=== PATIENT | male | born 1940 | race Caucasian/White ===

== ENCOUNTER 2017-01-15 10:30 | Emergency (ER) | payer OTHER, MEDICARE ==
[~2017-01-15] VITALS: Ht 172.7 cm; Wt 65.8 kg
[~2017-01-15 10:30] MED LIST: LOSA25TA3 PO; METF-305 PO; SIMV20TA6 PO; SITA100T7 PO
[2017-01-15 10:45] VITALS: BP_SYST 125
[2017-01-15 13:08] LABS: BASOPHILS # (AUTO) 0.2 K/uL (0.0-0.2); EOSINOPHILS # (AUTO) 0.2 K/uL (0.0-0.4); EOSINOPHILS % (AUTO) 1.9 % (0.0-4.0); HEMATOCRIT 40.4 % (36-54); HEMOGLOBIN 13.7 g/dL (14.0-18.0); LYMPHOCYTES # (AUTO) 0.9 K/uL (1.0-5.5); LYMPHOCYTES % (AUTO) 7.2 % (20.5-51.5); MEAN CORPUSCULAR HEMOGLOBIN 32 pg (27-31); MEAN CORPUSCULAR HGB CONC 34 % (32-36); MEAN CORPUSCULAR VOLUME 94 fL (79.0-98.0); MONOCYTES # (AUTO) 0.9 K/uL (0.0-1.0); MONOCYTES % (AUTO) 7.5 % (1.7-9.3); NEUTROPHILS # (AUTO) 9.7 K/uL (1.8-7.7); NEUTROPHILS % (AUTO) 81.4 % (40.0-70.0); PLATELET COUNT (AUTO) 133 K/uL (130-430); RED BLOOD CELL COUNT(AUTO) 4.31 MIL/uL (4.2-6.2); RED CELL DISTRIBUTION WIDTH 14.3 % (9.0-15.0); WHITE BLOOD COUNT (AUTO) 11.9 K/uL (4.8-10.8)
[2017-01-15 13:18] LABS: ANION GAP 7 (5-15); CALCIUM 8.7 mg/dL (8.4-11.0); CHLORIDE 107 mmol/L (98-107); CREATININE 0.82 mg/dL (0.55-1.30); GLUCOSE 138 mg/dL (70-99); SODIUM SERUM 140 mmol/L (136-145); UREA NITROGEN, BLOOD 25 mg/dL (8-21)
[2017-01-15 13:20] LABS: INR 1.2 (0.80-1.20); PROTHROMBIN TIME 12.8 SECS (9.5-12.5)
[2017-01-15 13:22] LABS: ALANINE AMINOTRANSFERASE 20 U/L (12-78); ALBUMIN 3.2 g/dL (3.4-4.8); ASPARTATE AMINOTRANSFERASE 13 U/L (10-37); TOTAL BILIRUBIN 0.9 mg/dL (0.0-1.0); TOTAL PROTEIN, SERUM 6.6 g/dL (6.4-8.3)
[2017-01-15 13:56] LABS: BILIRUBIN,URINE NEGATIVE (NEGATIVE); BLOOD, URINE NEGATIVE (NEGATIVE); CLARITY/URINE CLEAR (CLEAR); COLOR,URINE YELLOW (YELLOW); GLUCOSE,URINE NEGATIVE (NEGATIVE); KETONES,URINE NEGATIVE (NEGATIVE); LEUKOCYTE ESTERASE ,URINE NEGATIVE (NEGATIVE); NITRITE, URINE NEGATIVE (NEGATIVE); PROTEIN URINE TRACE (NEGATIVE); UROBILINOGEN,URINE 0.2 (0.2-1.0)
[2017-01-15 13:58] LABS: BACTERIA,URINE RARE /HPF (None Seen); MUCUS,URINE 1+ /LPF (None Seen); RBC,URINE 0-3 /HPF (0-3); WBC,URINE 0-3 /HPF (0-3)
[2017-01-15 14:30] VITALS: BP_SYST 121
== END 2017-01-15 14:30 | disposition home or self-care (01) ==
LOC: SED 10:30
DX: S20.211A Contusion of right front wall of thorax, initial encounter (principal); E11.9 Type 2 diabetes mellitus without complications; I10 Essential (primary) hypertension; C34.90 Malignant neoplasm of unspecified part of unspecified bronchus or lung; Z88.0 Allergy status to penicillin; W19.XXXA Unspecified fall, initial encounter; Y93.89 Activity, other specified; Y92.009 Unspecified place in unspecified non-institutional (private) residence as the place of occurrence of the external cause; Y99.8 Other external cause status
CPT/HCPCS: 36415; 71010; 71100; 80053; 81000-TC; 83880; 84484; 85025; 85610-TC; 93005; 99285

== ENCOUNTER 2017-08-29 10:39 | Inpatient (IN) | payer OTHER, MEDICARE ==
[2017-08-29] VITALS (11 sets, daily range): BP systolic 96–178
[~2017-08-29] VITALS: Ht 172.7 cm; Wt 61.7 kg
[2017-08-29 11:38] LABS: BASOPHILS # (AUTO) 0.1 K/uL (0.0-0.2); BASOPHILS % (AUTO) 1.7 % (0.0-2.0); EOSINOPHILS # (AUTO) 0.1 K/uL (0.0-0.4); HEMATOCRIT 41.1 % (36-54); HEMOGLOBIN 13.3 g/dL (14.0-18.0); LYMPHOCYTES # (AUTO) 0.5 K/uL (1.0-5.5); LYMPHOCYTES % (AUTO) 6.6 % (20.5-51.5); MEAN CORPUSCULAR HEMOGLOBIN 30 pg (27-31); MEAN CORPUSCULAR HGB CONC 32 % (32-36); MEAN CORPUSCULAR VOLUME 92 fL (79.0-98.0); MONOCYTES # (AUTO) 0.4 K/uL (0.0-1.0); MONOCYTES % (AUTO) 5.8 % (1.7-9.3); NEUTROPHILS # (AUTO) 6.6 K/uL (1.8-7.7); NEUTROPHILS % (AUTO) 84.9 % (40.0-70.0); PLATELET COUNT (AUTO) 139 K/uL (130-430); RED BLOOD CELL COUNT(AUTO) 4.48 MIL/uL (4.2-6.2); RED CELL DISTRIBUTION WIDTH 14.6 % (9.0-15.0); WHITE BLOOD COUNT (AUTO) 7.7 K/uL (4.8-10.8)
[2017-08-29 12:09] LABS: ANION GAP 10 (5-15); CALCIUM 8.7 mg/dL (8.4-11.0); CHLORIDE 100 mmol/L (98-107); CREATININE 0.72 mg/dL (0.55-1.30); GLUCOSE 151 mg/dL (70-99); POTASSIUM 4.8 mmol/L (3.5-5.1); SODIUM SERUM 135 mmol/L (136-145); UREA NITROGEN, BLOOD 28 mg/dL (8-21)
[2017-08-29 12:14] LABS: ALANINE AMINOTRANSFERASE 16 U/L (12-78); ALBUMIN 3.3 g/dL (3.4-4.8); ASPARTATE AMINOTRANSFERASE 18 U/L (10-37); TOTAL BILIRUBIN 0.8 mg/dL (0.0-1.0)
[2017-08-29] MEDS ORDERED: GLIP-195 PO (12:37)
[2017-08-29] MEDS ORDERED: TYC3 PO (12:37)
[2017-08-29] MEDS ORDERED: TAMS-11 PO (12:37)
[2017-08-29] MEDS ORDERED: CILO100T PO (12:37)
[2017-08-29 13:02] LABS: BILIRUBIN,URINE NEGATIVE (NEGATIVE); BLOOD, URINE NEGATIVE (NEGATIVE); CLARITY/URINE CLEAR (CLEAR); COLOR,URINE YELLOW (YELLOW); GLUCOSE,URINE NEGATIVE (NEGATIVE); KETONES,URINE 2+ (NEGATIVE); LEUKOCYTE ESTERASE ,URINE TRACE (NEGATIVE); NITRITE, URINE NEGATIVE (NEGATIVE); PH,URINE 5.5 (5.0-8.0); PROTEIN URINE NEGATIVE (NEGATIVE); UROBILINOGEN,URINE 0.2 (0.2-1.0)
[2017-08-29 13:15] LABS: INR 1.2 (0.80-1.20); PROTHROMBIN TIME 12.5 SECS (9.5-12.5)
[2017-08-29 13:49] LABS: BACTERIA,URINE FEW /HPF (None Seen); RBC,URINE 0-3 /HPF (0-3)
[2017-08-29] MEDS ORDERED: DILTIAZEM HCL 25 MG/5 ML VIAL ONE (13:49)
[2017-08-29 13:50] LABS: MUCUS,URINE 1+ /LPF (None Seen)
[2017-08-29] MEDS ORDERED: DILTIAZEM HCL 25 MG/5 ML VIAL IVP ONE ×3 (14:00→16:15)
[2017-08-29] MEDS ORDERED: DEXTROSE 50% JECT 50 ML DISP.SYRIN IVP PRN (15:15)
[2017-08-29] MEDS ORDERED: cefTRIAXone 1 GM in D5W 50 ML IV ONE (16:00)
[2017-08-29] MEDS: AZITHROMYCIN 250 MG TABLET PO ONE ×2 (16:48→16:59)
[2017-08-29] MEDS: DILTIAZEM HCL 125 MG in D5W 100 ML IV SCH (17:05)
[2017-08-29] MEDS: INSULIN ASPART 100 UNITS/ML, 10 ML VIAL (NovoLOG) SUBCUT PRN (21:29)
[2017-08-29] MEDS: glipiZIDE XL 5 MG TAB ( GLUCOTROL XL) PO SCH (21:30)
[2017-08-29] MEDS: metFORMIN HCL 500 MG TABLET PO SCH (21:30)
[2017-08-29] MEDS ORDERED: AMIODARONE HCL 200 MG TABLET PO ONE (23:00)
[2017-08-30] VITALS (24 sets, daily range): BP systolic 87–137
[2017-08-30] MEDS: DILTIAZEM HCL 125 MG in D5W 100 ML IV SCH ×2 (00:11→11:15)
[2017-08-30] MEDS: AMIODARONE HCL 200 MG TABLET PO SCH ×3 (06:14→21:04)
[2017-08-30 06:27] LABS: BASOPHILS % (AUTO) 0.7 % (0.0-2.0); EOSINOPHILS # (AUTO) 0.3 K/uL (0.0-0.4); EOSINOPHILS % (AUTO) 4.3 % (0.0-4.0); HEMATOCRIT 38.3 % (36-54); HEMOGLOBIN 12.7 g/dL (14.0-18.0); LYMPHOCYTES # (AUTO) 0.8 K/uL (1.0-5.5); LYMPHOCYTES % (AUTO) 13.4 % (20.5-51.5); MEAN CORPUSCULAR HEMOGLOBIN 31 pg (27-31); MEAN CORPUSCULAR HGB CONC 33 % (32-36); MEAN CORPUSCULAR VOLUME 93 fL (79.0-98.0); MONOCYTES # (AUTO) 0.5 K/uL (0.0-1.0); MONOCYTES % (AUTO) 8.2 % (1.7-9.3); NEUTROPHILS # (AUTO) 4.6 K/uL (1.8-7.7); NEUTROPHILS % (AUTO) 73.4 % (40.0-70.0); PLATELET COUNT (AUTO) 135 K/uL (130-430); RED BLOOD CELL COUNT(AUTO) 4.14 MIL/uL (4.2-6.2); RED CELL DISTRIBUTION WIDTH 14.7 % (9.0-15.0); WHITE BLOOD COUNT (AUTO) 6.2 K/uL (4.8-10.8)
[2017-08-30 06:47] LABS: ANION GAP 7 (5-15); CALCIUM 8.6 mg/dL (8.4-11.0); CHLORIDE 103 mmol/L (98-107); CREATININE 0.54 mg/dL (0.55-1.30); GLUCOSE 97 mg/dL (70-99); POTASSIUM 4.4 mmol/L (3.5-5.1); SODIUM SERUM 138 mmol/L (136-145); UREA NITROGEN, BLOOD 20 mg/dL (8-21)
[2017-08-30] MEDS: cefTRIAXone 1 GM in D5W 50 ML IV SCH (08:46)
[2017-08-30] MEDS: AZITHROMYCIN 250 MG TABLET PO SCH (08:47)
[2017-08-30] MEDS: metFORMIN HCL 500 MG TABLET PO SCH ×2 (08:47→21:04)
[2017-08-30] MEDS: TAMSULOSIN HCL 0.4 MG CAP PO SCH (08:48)
[2017-08-30] MEDS: SIMVASTATIN 20 MG TABLET PO SCH (08:48)
[2017-08-30] MEDS: glipiZIDE XL 5 MG TAB ( GLUCOTROL XL) PO SCH ×2 (08:49→21:14)
[2017-08-30] MEDS ORDERED: LOSARTAN POTASSIUM 25 MG TABLET PO SCH (09:00)
[2017-08-30] MEDS: METOPROLOL TARTRATE 25 MG TABLET PO SCH (21:00)
[2017-08-30] MEDS: INSULIN ASPART 100 UNITS/ML, 10 ML VIAL (NovoLOG) SUBCUT PRN (21:10)
[2017-08-31] VITALS (20 sets, daily range): BP systolic 87–124
[2017-08-31] MEDS: AMIODARONE HCL 200 MG TABLET PO SCH ×3 (06:20→23:48)
[2017-08-31 06:41] LABS: BASOPHILS # (AUTO) 0.1 K/uL (0.0-0.2); BASOPHILS % (AUTO) 0.7 % (0.0-2.0); EOSINOPHILS # (AUTO) 0.2 K/uL (0.0-0.4); EOSINOPHILS % (AUTO) 1.8 % (0.0-4.0); HEMATOCRIT 38.8 % (36-54); HEMOGLOBIN 12.3 g/dL (14.0-18.0); LYMPHOCYTES # (AUTO) 0.6 K/uL (1.0-5.5); LYMPHOCYTES % (AUTO) 6.6 % (20.5-51.5); MEAN CORPUSCULAR HEMOGLOBIN 29 pg (27-31); MEAN CORPUSCULAR HGB CONC 32 % (32-36); MEAN CORPUSCULAR VOLUME 92 fL (79.0-98.0); MONOCYTES # (AUTO) 0.7 K/uL (0.0-1.0); MONOCYTES % (AUTO) 8.5 % (1.7-9.3); NEUTROPHILS % (AUTO) 82.4 % (40.0-70.0); PLATELET COUNT (AUTO) 137 K/uL (130-430); RED BLOOD CELL COUNT(AUTO) 4.23 MIL/uL (4.2-6.2); RED CELL DISTRIBUTION WIDTH 14.1 % (9.0-15.0); WHITE BLOOD COUNT (AUTO) 8.6 K/uL (4.8-10.8)
[2017-08-31 06:56] LABS: ANION GAP 9 (5-15); CALCIUM 8.6 mg/dL (8.4-11.0); CHLORIDE 100 mmol/L (98-107); CREATININE 0.58 mg/dL (0.55-1.30); GLUCOSE 136 mg/dL (70-99); POTASSIUM 3.7 mmol/L (3.5-5.1); SODIUM SERUM 134 mmol/L (136-145)
[2017-08-31 07:25] LABS: UREA NITROGEN, BLOOD 23 mg/dL (8-21)
[2017-08-31] MEDS ORDERED: MILK OF MAGNESIA 30 ML UDC PO ONE (08:45)
[2017-08-31] MEDS ORDERED: BISACODYL 5 MG TABLET.DR (DULCOLAX) PO ONE (08:45)
[2017-08-31] MEDS: TAMSULOSIN HCL 0.4 MG CAP PO SCH (09:09)
[2017-08-31] MEDS: cefTRIAXone 1 GM in D5W 50 ML IV SCH (09:09)
[2017-08-31] MEDS: glipiZIDE XL 5 MG TAB ( GLUCOTROL XL) PO SCH ×2 (09:10→20:26)
[2017-08-31] MEDS: SIMVASTATIN 20 MG TABLET PO SCH (09:10)
[2017-08-31] MEDS: AZITHROMYCIN 250 MG TABLET PO SCH (09:10)
[2017-08-31] MEDS: METOPROLOL TARTRATE 25 MG TABLET PO SCH ×2 (09:10→20:24)
[2017-08-31] MEDS: metFORMIN HCL 500 MG TABLET PO SCH ×2 (09:29→20:24)
[2017-08-31] MEDS: DOCUSATE SODIUM 250 MG CAPSULE PO SCH ×2 (09:32→20:24)
[2017-08-31] MEDS ORDERED: LATA2.5D6 OP (11:08)
[2017-08-31] MEDS ORDERED: ALPHAGANP OP (11:08)
[2017-08-31] MEDS: INSULIN ASPART 100 UNITS/ML, 10 ML VIAL (NovoLOG) SUBCUT PRN ×2 (11:53→20:33)
[2017-08-31] MEDS ORDERED: NACL 0.9% 1,000 ML IV SCH (17:00)
[2017-09-01] VITALS (7 sets, daily range): BP systolic 94–146
[2017-09-01 07:14] LABS: BASOPHILS # (AUTO) 0.1 K/uL (0.0-0.2); BASOPHILS % (AUTO) 0.5 % (0.0-2.0); EOSINOPHILS # (AUTO) 0.1 K/uL (0.0-0.4); EOSINOPHILS % (AUTO) 0.5 % (0.0-4.0); HEMATOCRIT 40.9 % (36-54); HEMOGLOBIN 13.5 g/dL (14.0-18.0); LYMPHOCYTES # (AUTO) 0.4 K/uL (1.0-5.5); LYMPHOCYTES % (AUTO) 4.2 % (20.5-51.5); MEAN CORPUSCULAR HEMOGLOBIN 30 pg (27-31); MEAN CORPUSCULAR HGB CONC 33 % (32-36); MEAN CORPUSCULAR VOLUME 92 fL (79.0-98.0); MONOCYTES # (AUTO) 0.8 K/uL (0.0-1.0); MONOCYTES % (AUTO) 7.8 % (1.7-9.3); NEUTROPHILS # (AUTO) 8.7 K/uL (1.8-7.7); PLATELET COUNT (AUTO) 145 K/uL (130-430); RED BLOOD CELL COUNT(AUTO) 4.46 MIL/uL (4.2-6.2); RED CELL DISTRIBUTION WIDTH 14.3 % (9.0-15.0); WHITE BLOOD COUNT (AUTO) 10.1 K/uL (4.8-10.8)
[2017-09-01] MEDS: AMIODARONE HCL 200 MG TABLET PO SCH ×3 (07:29→22:36)
[2017-09-01 07:32] LABS: ANION GAP 10 (5-15); CALCIUM 7.8 mg/dL (8.4-11.0); CHLORIDE 102 mmol/L (98-107); GLUCOSE 128 mg/dL (70-99); POTASSIUM 3.9 mmol/L (3.5-5.1); SODIUM SERUM 137 mmol/L (136-145); UREA NITROGEN, BLOOD 22 mg/dL (8-21)
[2017-09-01] MEDS: SIMVASTATIN 20 MG TABLET PO SCH (09:45)
[2017-09-01] MEDS: AZITHROMYCIN 250 MG TABLET PO SCH (09:45)
[2017-09-01] MEDS: TAMSULOSIN HCL 0.4 MG CAP PO SCH (09:45)
[2017-09-01] MEDS: DOCUSATE SODIUM 250 MG CAPSULE PO SCH ×2 (09:45→20:58)
[2017-09-01] MEDS: glipiZIDE XL 5 MG TAB ( GLUCOTROL XL) PO SCH ×2 (09:45→20:58)
[2017-09-01] MEDS: metFORMIN HCL 500 MG TABLET PO SCH ×2 (09:46→20:58)
[2017-09-01] MEDS: METOPROLOL TARTRATE 25 MG TABLET PO SCH ×2 (09:47→20:59)
[2017-09-01] MEDS: ACETAMINOPHEN/CODEINE 300 MG-30 MG TABLET PO PRN (09:48)
[2017-09-01] MEDS: cefTRIAXone 1 GM in D5W 50 ML IV SCH (09:49)
[2017-09-01] MEDS ORDERED: FUROSEMIDE 40 MG/4 ML VIAL IVP ONE (10:45)
[2017-09-01] MEDS: INSULIN ASPART 100 UNITS/ML, 10 ML VIAL (NovoLOG) SUBCUT PRN (11:48)
[2017-09-01] MEDS: BRIMONIDINE TARTRATE 0.2% 5 mL EYE DROPS OP SCH (18:18)
[2017-09-01] MEDS: LATANOPROST 2.5 ML DROPS (XALATAN) OP SCH (18:19)
[2017-09-01] MEDS: IPRATROPIUM BROM 0.5 MG/2.5 ML VIAL.NEB (ATROVENT) INH SCH (20:34)
[2017-09-02] MEDS: IPRATROPIUM BROM 0.5 MG/2.5 ML VIAL.NEB (ATROVENT) INH SCH ×4 (02:15→19:50)
[2017-09-02] MEDS: AMIODARONE HCL 200 MG TABLET PO SCH ×3 (06:00→21:18)
[2017-09-02 07:44] LABS: BASOPHILS % (AUTO) 0.2 % (0.0-2.0); EOSINOPHILS % (AUTO) 0.1 % (0.0-4.0); HEMATOCRIT 39.1 % (36-54); HEMOGLOBIN 13.1 g/dL (14.0-18.0); LYMPHOCYTES # (AUTO) 0.6 K/uL (1.0-5.5); LYMPHOCYTES % (AUTO) 5.1 % (20.5-51.5); MEAN CORPUSCULAR HEMOGLOBIN 31 pg (27-31); MEAN CORPUSCULAR HGB CONC 33 % (32-36); MEAN CORPUSCULAR VOLUME 92 fL (79.0-98.0); MONOCYTES # (AUTO) 0.8 K/uL (0.0-1.0); MONOCYTES % (AUTO) 7.2 % (1.7-9.3); NEUTROPHILS # (AUTO) 9.4 K/uL (1.8-7.7); NEUTROPHILS % (AUTO) 87.4 % (40.0-70.0); PLATELET COUNT (AUTO) 133 K/uL (130-430); RED BLOOD CELL COUNT(AUTO) 4.26 MIL/uL (4.2-6.2); RED CELL DISTRIBUTION WIDTH 14.3 % (9.0-15.0); WHITE BLOOD COUNT (AUTO) 10.8 K/uL (4.8-10.8)
[2017-09-02 07:50] VITALS: BP_SYST 116
[2017-09-02 07:57] LABS: ANION GAP 11 (5-15); CALCIUM 7.9 mg/dL (8.4-11.0); CHLORIDE 104 mmol/L (98-107); CREATININE 0.57 mg/dL (0.55-1.30); GLUCOSE 83 mg/dL (70-99); POTASSIUM 3.4 mmol/L (3.5-5.1); SODIUM SERUM 139 mmol/L (136-145); UREA NITROGEN, BLOOD 20 mg/dL (8-21)
[2017-09-02] MEDS: AZITHROMYCIN 250 MG TABLET PO SCH (08:46)
[2017-09-02] MEDS: LATANOPROST 2.5 ML DROPS (XALATAN) OP SCH (08:46)
[2017-09-02] MEDS: metFORMIN HCL 500 MG TABLET PO SCH ×2 (08:47→21:16)
[2017-09-02] MEDS: DOCUSATE SODIUM 250 MG CAPSULE PO SCH ×2 (08:47→21:23)
[2017-09-02] MEDS: BRIMONIDINE TARTRATE 0.2% 5 mL EYE DROPS OP SCH (08:47)
[2017-09-02] MEDS: TAMSULOSIN HCL 0.4 MG CAP PO SCH (08:48)
[2017-09-02] MEDS: glipiZIDE XL 5 MG TAB ( GLUCOTROL XL) PO SCH ×2 (08:48→21:20)
[2017-09-02] MEDS: METOPROLOL TARTRATE 25 MG TABLET PO SCH ×2 (08:49→21:19)
[2017-09-02] MEDS: SIMVASTATIN 20 MG TABLET PO SCH (08:49)
[2017-09-02] MEDS: cefTRIAXone 1 GM in D5W 50 ML IV SCH (09:15)
[2017-09-02 12:35] VITALS: BP_SYST 128
[2017-09-02 16:00] VITALS: BP_SYST 119
[2017-09-02 20:00] VITALS: BP_SYST 112
[2017-09-03] MEDS: IPRATROPIUM BROM 0.5 MG/2.5 ML VIAL.NEB (ATROVENT) INH SCH ×4 (00:40→19:53)
[2017-09-03 00:48] VITALS: BP_SYST 130
[2017-09-03 04:10] VITALS: BP_SYST 127
[2017-09-03] MEDS: AMIODARONE HCL 200 MG TABLET PO SCH ×3 (06:19→20:40)
[2017-09-03 06:55] LABS: MEAN CORPUSCULAR HEMOGLOBIN 31 pg (27-31)
[2017-09-03 07:16] LABS: ANION GAP 11 (5-15); CALCIUM 8.1 mg/dL (8.4-11.0); CHLORIDE 100 mmol/L (98-107); CREATININE 0.56 mg/dL (0.55-1.30); GLUCOSE 72 mg/dL (70-99); POTASSIUM 3.9 mmol/L (3.5-5.1); SODIUM SERUM 136 mmol/L (136-145); UREA NITROGEN, BLOOD 24 mg/dL (8-21)
[2017-09-03 07:51] LABS: WHITE BLOOD COUNT (AUTO) 11.9 K/uL (4.8-10.8)
[2017-09-03 07:52] LABS: HEMATOCRIT 39.7 % (36-54); HEMOGLOBIN 13.1 g/dL (14.0-18.0); MEAN CORPUSCULAR HGB CONC 33 % (32-36); MEAN CORPUSCULAR VOLUME 92 fL (79.0-98.0); PLATELET COUNT (AUTO) 140 K/uL (130-430); RED BLOOD CELL COUNT(AUTO) 4.31 MIL/uL (4.2-6.2); RED CELL DISTRIBUTION WIDTH 14.7 % (9.0-15.0)
[2017-09-03 08:34] VITALS: BP_SYST 150
[2017-09-03] MEDS: DOCUSATE SODIUM 250 MG CAPSULE PO SCH ×2 (08:45→20:41)
[2017-09-03] MEDS: SIMVASTATIN 20 MG TABLET PO SCH (08:45)
[2017-09-03] MEDS: TAMSULOSIN HCL 0.4 MG CAP PO SCH (08:45)
[2017-09-03] MEDS: cefTRIAXone 1 GM in D5W 50 ML IV SCH (08:45)
[2017-09-03] MEDS: metFORMIN HCL 500 MG TABLET PO SCH ×2 (08:45→20:40)
[2017-09-03] MEDS: glipiZIDE XL 5 MG TAB ( GLUCOTROL XL) PO SCH ×2 (08:45→20:46)
[2017-09-03] MEDS: LATANOPROST 2.5 ML DROPS (XALATAN) OP SCH (08:45)
[2017-09-03] MEDS: BRIMONIDINE TARTRATE 0.2% 5 mL EYE DROPS OP SCH (08:45)
[2017-09-03] MEDS: METOPROLOL TARTRATE 25 MG TABLET PO SCH ×2 (08:46→20:40)
[2017-09-03] MEDS ORDERED: FUROSEMIDE 40 MG/4 ML VIAL IVP ONE (10:45)
[2017-09-03 11:16] LABS: ATYPICAL LYMPHOCYTES % 0 % (0-0); BAND % (MANUAL) 4 % (0-6); LYMPHOCYTES % (MANUAL) 4 % (20-46)
[2017-09-03 11:17] LABS: BASOPHILS % (MANUAL) 0 % (0-2); EOSINOPHILS % (MANUAL) 1 % (0-7); MONOCYTES % (MANUAL) 7 % (0-11)
[2017-09-03] MEDS ORDERED: methylPREDNISolone SOD SUCC 40 MG/ML VIAL IVP ONE (11:45)
[2017-09-03 12:00] VITALS: BP_SYST 118
[2017-09-03 16:00] VITALS: BP_SYST 121
[2017-09-03] MEDS: methylPREDNISolone SOD SUCC 40 MG/ML VIAL IVP SCH (20:39)
[2017-09-04] VITALS (7 sets, daily range): BP systolic 114–138
[2017-09-04] MEDS: IPRATROPIUM BROM 0.5 MG/2.5 ML VIAL.NEB (ATROVENT) INH SCH ×4 (01:22→19:31)
[2017-09-04] MEDS: AMIODARONE HCL 200 MG TABLET PO SCH ×3 (05:20→22:01)
[2017-09-04 06:48] LABS: ANION GAP 10 (5-15); CALCIUM 8.1 mg/dL (8.4-11.0); CHLORIDE 103 mmol/L (98-107); CREATININE 0.65 mg/dL (0.55-1.30); GLUCOSE 113 mg/dL (70-99); POTASSIUM 4.1 mmol/L (3.5-5.1); SODIUM SERUM 137 mmol/L (136-145); UREA NITROGEN, BLOOD 31 mg/dL (8-21)
[2017-09-04] MEDS: methylPREDNISolone SOD SUCC 40 MG/ML VIAL IVP SCH (08:30)
[2017-09-04] MEDS: LATANOPROST 2.5 ML DROPS (XALATAN) OP SCH (08:30)
[2017-09-04] MEDS: BRIMONIDINE TARTRATE 0.2% 5 mL EYE DROPS OP SCH (08:30)
[2017-09-04] MEDS: CEFEPIME 1 GM in D5W 50 ML IV SCH (08:30)
[2017-09-04] MEDS: METOPROLOL TARTRATE 25 MG TABLET PO SCH ×2 (08:31→21:39)
[2017-09-04] MEDS: metFORMIN HCL 500 MG TABLET PO SCH ×2 (08:31→21:36)
[2017-09-04] MEDS: DOCUSATE SODIUM 250 MG CAPSULE PO SCH ×2 (08:31→21:37)
[2017-09-04] MEDS: SIMVASTATIN 20 MG TABLET PO SCH (08:31)
[2017-09-04] MEDS: TAMSULOSIN HCL 0.4 MG CAP PO SCH (08:31)
[2017-09-04] MEDS: glipiZIDE XL 5 MG TAB ( GLUCOTROL XL) PO SCH ×2 (08:31→21:37)
[2017-09-04] MEDS ORDERED: FUROSEMIDE 40 MG/4 ML VIAL IVP ONE (09:15)
[2017-09-04] MEDS: methylPREDNISolone SOD SUCC/PF 62.5 MG/ML VIAL IVP SCH ×2 (14:11→21:40)
[2017-09-04] MEDS: INSULIN ASPART 100 UNITS/ML, 10 ML VIAL (NovoLOG) SUBCUT PRN (21:49)
[2017-09-05] VITALS (18 sets, daily range): BP systolic 93–142
[2017-09-05] MEDS: IPRATROPIUM BROM 0.5 MG/2.5 ML VIAL.NEB (ATROVENT) INH SCH ×4 (00:26→19:58)
[2017-09-05] MEDS: AMIODARONE HCL 200 MG TABLET PO SCH ×2 (06:15→13:44)
[2017-09-05] MEDS: methylPREDNISolone SOD SUCC/PF 62.5 MG/ML VIAL IVP SCH ×3 (06:16→21:46)
[2017-09-05 06:53] LABS: ANION GAP 12 (5-15); CALCIUM 8.7 mg/dL (8.4-11.0); CHLORIDE 100 mmol/L (98-107); CREATININE 0.74 mg/dL (0.55-1.30); GLUCOSE 95 mg/dL (70-99); POTASSIUM 4.3 mmol/L (3.5-5.1); SODIUM SERUM 138 mmol/L (136-145); UREA NITROGEN, BLOOD 37 mg/dL (8-21)
[2017-09-05] MEDS ORDERED: FUROSEMIDE 40 MG/4 ML VIAL IVP ONE (08:30)
[2017-09-05] MEDS ORDERED: FUROSEMIDE 20 MG/2 ML VIAL ONE (08:31)
[2017-09-05] MEDS: TAMSULOSIN HCL 0.4 MG CAP PO SCH (08:42)
[2017-09-05] MEDS: metFORMIN HCL 500 MG TABLET PO SCH (08:42)
[2017-09-05] MEDS: DOCUSATE SODIUM 250 MG CAPSULE PO SCH ×2 (08:42→21:39)
[2017-09-05] MEDS: SIMVASTATIN 20 MG TABLET PO SCH (08:42)
[2017-09-05] MEDS: CEFEPIME 1 GM in D5W 50 ML IV SCH (08:43)
[2017-09-05] MEDS: METOPROLOL TARTRATE 25 MG TABLET PO SCH ×2 (08:43→21:40)
[2017-09-05] MEDS: LATANOPROST 2.5 ML DROPS (XALATAN) OP SCH (08:49)
[2017-09-05] MEDS: BRIMONIDINE TARTRATE 0.2% 5 mL EYE DROPS OP SCH (08:51)
[2017-09-05] MEDS: glipiZIDE XL 5 MG TAB ( GLUCOTROL XL) PO SCH ×2 (09:00→21:47)
[2017-09-05] MEDS ORDERED: LEVOFLOXACIN 500 MG/D5W 100 ML IV SCH (10:00)
[2017-09-05] MEDS ORDERED: IOHEXOL 350 mgI/mL, 150 ML INFUS..BTL IV ONE (16:32)
[2017-09-05] MEDS ORDERED: AMIODARONE HCL 200 MG TABLET ONE (21:34)
[2017-09-05] MEDS: AZITHROMYCIN 500 MG in NS 250 ML IV SCH (21:39)
[2017-09-05] MEDS: ANTIFUNGAL CLEAR OINTMENT TP SCH (21:48)
[2017-09-06] VITALS (24 sets, daily range): BP systolic 107–160
[2017-09-06] MEDS: INSULIN ASPART 100 UNITS/ML, 10 ML VIAL (NovoLOG) SUBCUT PRN ×4 (00:22→21:54)
[2017-09-06] MEDS: ACETAMINOPHEN/CODEINE 300 MG-30 MG TABLET PO PRN (00:38)
[2017-09-06] MEDS: IPRATROPIUM BROM 0.5 MG/2.5 ML VIAL.NEB (ATROVENT) INH SCH ×4 (01:51→20:02)
[2017-09-06] MEDS: methylPREDNISolone SOD SUCC/PF 62.5 MG/ML VIAL IVP SCH ×3 (06:25→21:37)
[2017-09-06 06:27] LABS: HEMATOCRIT 35.9 % (36-54); HEMOGLOBIN 11.9 g/dL (14.0-18.0); LYMPHOCYTES # (AUTO) 0.2 K/uL (1.0-5.5); LYMPHOCYTES % (AUTO) 1.3 % (20.5-51.5); MEAN CORPUSCULAR HEMOGLOBIN 31 pg (27-31); MEAN CORPUSCULAR HGB CONC 33 % (32-36); MEAN CORPUSCULAR VOLUME 92 fL (79.0-98.0); MONOCYTES # (AUTO) 0.3 K/uL (0.0-1.0); MONOCYTES % (AUTO) 2.3 % (1.7-9.3); NEUTROPHILS # (AUTO) 14.5 K/uL (1.8-7.7); NEUTROPHILS % (AUTO) 96.4 % (40.0-70.0); PLATELET COUNT (AUTO) 106 K/uL (130-430); RED BLOOD CELL COUNT(AUTO) 3.89 MIL/uL (4.2-6.2); RED CELL DISTRIBUTION WIDTH 14.7 % (9.0-15.0)
[2017-09-06 06:57] LABS: ALANINE AMINOTRANSFERASE 61 U/L (12-78); ALBUMIN 2.3 g/dL (3.4-4.8); ANION GAP 7 (5-15); ASPARTATE AMINOTRANSFERASE 78 U/L (10-37); CALCIUM 7.5 mg/dL (8.4-11.0); CHLORIDE 100 mmol/L (98-107); CREATININE 0.62 mg/dL (0.55-1.30); GLUCOSE 155 mg/dL (70-99); SODIUM SERUM 135 mmol/L (136-145); UREA NITROGEN, BLOOD 41 mg/dL (8-21)
[2017-09-06] MEDS ORDERED: COMMUNICATION ORDER XX SCH ×5 (09:00→11:00)
[2017-09-06] MEDS: TAMSULOSIN HCL 0.4 MG CAP PO SCH (09:09)
[2017-09-06] MEDS: METOPROLOL TARTRATE 25 MG TABLET PO SCH ×2 (09:11→21:38)
[2017-09-06] MEDS: SIMVASTATIN 20 MG TABLET PO SCH (09:11)
[2017-09-06] MEDS: AMIODARONE HCL 200 MG TABLET PO SCH (09:12)
[2017-09-06] MEDS: BRIMONIDINE TARTRATE 0.2% 5 mL EYE DROPS OP SCH (09:15)
[2017-09-06] MEDS: glipiZIDE XL 5 MG TAB ( GLUCOTROL XL) PO SCH ×2 (09:16→21:38)
[2017-09-06] MEDS: LATANOPROST 2.5 ML DROPS (XALATAN) OP SCH (09:16)
[2017-09-06] MEDS: DOCUSATE SODIUM 250 MG CAPSULE PO SCH ×2 (09:16→21:38)
[2017-09-06] MEDS: CEFEPIME 1 GM in D5W 50 ML IV SCH (12:45)
[2017-09-06] MEDS ORDERED: DOCUSATE SODIUM 100 MG/10 ML UDC ONE (13:15)
[2017-09-06] MEDS: ANTIFUNGAL CLEAR OINTMENT TP SCH ×2 (18:03→22:10)
[2017-09-06] MEDS: LACTULOSE 20 GM/30 ML UDC PO SCH (21:37)
[2017-09-06] MEDS ORDERED: AZITHROMYCIN 500 MG/VIAL (ZITHROMAX) IV ONE (21:39)
[2017-09-06] MEDS: AZITHROMYCIN 500 MG in NS 250 ML IV SCH (22:08)
[2017-09-07] VITALS (25 sets, daily range): BP systolic 110–167
[2017-09-07] MEDS: IPRATROPIUM BROM 0.5 MG/2.5 ML VIAL.NEB (ATROVENT) INH SCH ×4 (01:45→19:25)
[2017-09-07] MEDS: ACETAMINOPHEN/CODEINE 300 MG-30 MG TABLET PO PRN ×2 (04:14→23:09)
[2017-09-07] MEDS: methylPREDNISolone SOD SUCC/PF 62.5 MG/ML VIAL IVP SCH (06:24)
[2017-09-07] MEDS: INSULIN ASPART 100 UNITS/ML, 10 ML VIAL (NovoLOG) SUBCUT PRN ×4 (06:28→21:06)
[2017-09-07 06:33] LABS: BASOPHILS % (AUTO) 0.1 % (0.0-2.0); HEMATOCRIT 37.1 % (36-54); HEMOGLOBIN 11.9 g/dL (14.0-18.0); LYMPHOCYTES # (AUTO) 0.2 K/uL (1.0-5.5); MEAN CORPUSCULAR HEMOGLOBIN 30 pg (27-31); MEAN CORPUSCULAR HGB CONC 32 % (32-36); MEAN CORPUSCULAR VOLUME 92 fL (79.0-98.0); MONOCYTES # (AUTO) 0.3 K/uL (0.0-1.0); MONOCYTES % (AUTO) 1.8 % (1.7-9.3); NEUTROPHILS # (AUTO) 15.4 K/uL (1.8-7.7); RED BLOOD CELL COUNT(AUTO) 4.05 MIL/uL (4.2-6.2); RED CELL DISTRIBUTION WIDTH 14.4 % (9.0-15.0); WHITE BLOOD COUNT (AUTO) 15.9 K/uL (4.8-10.8)
[2017-09-07 06:37] LABS: ANION GAP 4 (5-15); CALCIUM 7.5 mg/dL (8.4-11.0); CHLORIDE 103 mmol/L (98-107); CREATININE 0.49 mg/dL (0.55-1.30); GLUCOSE 114 mg/dL (70-99); PHOSPHORUS 3.3 mg/dL (2.7-4.5); POTASSIUM 3.7 mmol/L (3.5-5.1); SODIUM SERUM 134 mmol/L (136-145); UREA NITROGEN, BLOOD 30 mg/dL (8-21)
[2017-09-07 07:53] LABS: PLATELET COUNT (AUTO) 67 K/uL (130-430)
[2017-09-07 07:54] LABS: NEUTROPHILS % (AUTO) 97.1 % (40.0-70.0)
[2017-09-07] MEDS: CEFEPIME 1 GM in D5W 50 ML IV SCH (09:26)
[2017-09-07] MEDS: BRIMONIDINE TARTRATE 0.2% 5 mL EYE DROPS OP SCH (09:27)
[2017-09-07] MEDS: LATANOPROST 2.5 ML DROPS (XALATAN) OP SCH (09:28)
[2017-09-07] MEDS: LACTULOSE 20 GM/30 ML UDC PO SCH ×2 (09:28→20:56)
[2017-09-07] MEDS: DOCUSATE SODIUM 250 MG CAPSULE PO SCH ×2 (09:29→20:56)
[2017-09-07] MEDS: METOPROLOL TARTRATE 25 MG TABLET PO SCH ×2 (09:29→21:02)
[2017-09-07] MEDS: TAMSULOSIN HCL 0.4 MG CAP PO SCH (09:29)
[2017-09-07] MEDS: SIMVASTATIN 20 MG TABLET PO SCH (09:29)
[2017-09-07] MEDS: AMIODARONE HCL 200 MG TABLET PO SCH (09:29)
[2017-09-07] MEDS: glipiZIDE XL 5 MG TAB ( GLUCOTROL XL) PO SCH ×2 (09:30→21:03)
[2017-09-07] MEDS: ANTIFUNGAL CLEAR OINTMENT TP SCH ×2 (09:35→21:02)
[2017-09-07] MEDS: FUROSEMIDE 100 MG in D5W 90 ML IV SCH (11:52)
[2017-09-07] MEDS: POTASSIUM CHLORIDE 20 MEQ/PKT PACKET PO SCH (20:57)
[2017-09-07] MEDS ORDERED: methylPREDNISolone SOD SUCC/PF 62.5 MG/ML VIAL IVP SCH (21:00)
[2017-09-08] VITALS (23 sets, daily range): BP systolic 92–156
[2017-09-08] MEDS: IPRATROPIUM BROM 0.5 MG/2.5 ML VIAL.NEB (ATROVENT) INH SCH ×4 (00:18→19:18)
[2017-09-08 06:37] LABS: HEMOGLOBIN 13.1 g/dL (14.0-18.0); LYMPHOCYTES # (AUTO) 0.2 K/uL (1.0-5.5); MEAN CORPUSCULAR HEMOGLOBIN 30 pg (27-31); MEAN CORPUSCULAR HGB CONC 34 % (32-36); MEAN CORPUSCULAR VOLUME 90 fL (79.0-98.0); MONOCYTES # (AUTO) 0.1 K/uL (0.0-1.0); MONOCYTES % (AUTO) 0.5 % (1.7-9.3); NEUTROPHILS # (AUTO) 20.9 K/uL (1.8-7.7); PLATELET COUNT (AUTO) 66 K/uL (130-430); RED BLOOD CELL COUNT(AUTO) 4.31 MIL/uL (4.2-6.2); RED CELL DISTRIBUTION WIDTH 14.4 % (9.0-15.0); WHITE BLOOD COUNT (AUTO) 21.2 K/uL (4.8-10.8)
[2017-09-08 06:40] LABS: ANION GAP 1 (5-15); CALCIUM 7.1 mg/dL (8.4-11.0); CHLORIDE 105 mmol/L (98-107); GLUCOSE 126 mg/dL (70-99); PHOSPHORUS 2.7 mg/dL (2.7-4.5); POTASSIUM 3.9 mmol/L (3.5-5.1); SODIUM SERUM 133 mmol/L (136-145); UREA NITROGEN, BLOOD 26 mg/dL (8-21)
[2017-09-08 07:53] LABS: NEUTROPHILS % (AUTO) 98.5 % (40.0-70.0)
[2017-09-08] MEDS: CEFEPIME 1 GM in D5W 50 ML IV SCH (09:25)
[2017-09-08] MEDS: LACTULOSE 20 GM/30 ML UDC PO SCH ×2 (09:25→20:28)
[2017-09-08] MEDS: POTASSIUM CHLORIDE 20 MEQ/PKT PACKET PO SCH ×2 (09:25→20:28)
[2017-09-08] MEDS: METOPROLOL TARTRATE 25 MG TABLET PO SCH ×2 (09:29→20:30)
[2017-09-08] MEDS: SIMVASTATIN 20 MG TABLET PO SCH (09:29)
[2017-09-08] MEDS: DOCUSATE SODIUM 250 MG CAPSULE PO SCH ×2 (09:29→20:29)
[2017-09-08] MEDS: AMIODARONE HCL 200 MG TABLET PO SCH (09:30)
[2017-09-08] MEDS: glipiZIDE XL 5 MG TAB ( GLUCOTROL XL) PO SCH ×2 (09:31→20:28)
[2017-09-08] MEDS: LATANOPROST 2.5 ML DROPS (XALATAN) OP SCH (09:31)
[2017-09-08] MEDS: BRIMONIDINE TARTRATE 0.2% 5 mL EYE DROPS OP SCH (09:32)
[2017-09-08] MEDS: ANTIFUNGAL CLEAR OINTMENT TP SCH ×2 (09:35→20:46)
[2017-09-08] MEDS: TAMSULOSIN HCL 0.4 MG CAP PO SCH (09:37)
[2017-09-08] MEDS: FUROSEMIDE 100 MG in D5W 90 ML IV SCH (11:40)
[2017-09-08] MEDS: INSULIN ASPART 100 UNITS/ML, 10 ML VIAL (NovoLOG) SUBCUT PRN (11:47)
[2017-09-08] MEDS: methylPREDNISolone SOD SUCC/PF 62.5 MG/ML VIAL IVP SCH (20:29)
[2017-09-09] VITALS (20 sets, daily range): BP systolic 113–138
[2017-09-09] MEDS: IPRATROPIUM BROM 0.5 MG/2.5 ML VIAL.NEB (ATROVENT) INH SCH ×3 (00:51→13:00)
[2017-09-09 06:52] LABS: EOSINOPHILS # (AUTO) 0.1 K/uL (0.0-0.4); EOSINOPHILS % (AUTO) 0.3 % (0.0-4.0); HEMATOCRIT 41.4 % (36-54); HEMOGLOBIN 13.9 g/dL (14.0-18.0); LYMPHOCYTES # (AUTO) 0.3 K/uL (1.0-5.5); LYMPHOCYTES % (AUTO) 1.4 % (20.5-51.5); MEAN CORPUSCULAR HEMOGLOBIN 30 pg (27-31); MEAN CORPUSCULAR HGB CONC 34 % (32-36); MEAN CORPUSCULAR VOLUME 90 fL (79.0-98.0); MONOCYTES # (AUTO) 0.1 K/uL (0.0-1.0); MONOCYTES % (AUTO) 0.4 % (1.7-9.3); NEUTROPHILS # (AUTO) 18.9 K/uL (1.8-7.7); NEUTROPHILS % (AUTO) 97.9 % (40.0-70.0); PLATELET COUNT (AUTO) 80 K/uL (130-430); RED CELL DISTRIBUTION WIDTH 14.4 % (9.0-15.0); WHITE BLOOD COUNT (AUTO) 19.4 K/uL (4.8-10.8)
[2017-09-09 07:16] LABS: ANION GAP 6 (5-15); CALCIUM 7.4 mg/dL (8.4-11.0); CHLORIDE 98 mmol/L (98-107); CREATININE 0.53 mg/dL (0.55-1.30); GLUCOSE 124 mg/dL (70-99); PHOSPHORUS 3.3 mg/dL (2.7-4.5); POTASSIUM 4.1 mmol/L (3.5-5.1); SODIUM SERUM 133 mmol/L (136-145); UREA NITROGEN, BLOOD 21 mg/dL (8-21)
[2017-09-09] MEDS: LACTULOSE 20 GM/30 ML UDC PO SCH (09:00)
[2017-09-09] MEDS: methylPREDNISolone SOD SUCC/PF 62.5 MG/ML VIAL IVP SCH (09:35)
[2017-09-09] MEDS: CEFEPIME 1 GM in D5W 50 ML IV SCH (09:35)
[2017-09-09] MEDS: AMIODARONE HCL 200 MG TABLET PO SCH (09:36)
[2017-09-09] MEDS: TAMSULOSIN HCL 0.4 MG CAP PO SCH (09:38)
[2017-09-09] MEDS: SIMVASTATIN 20 MG TABLET PO SCH (09:38)
[2017-09-09] MEDS: METOPROLOL TARTRATE 25 MG TABLET PO SCH (09:38)
[2017-09-09] MEDS: DOCUSATE SODIUM 250 MG CAPSULE PO SCH (09:38)
[2017-09-09] MEDS: glipiZIDE XL 5 MG TAB ( GLUCOTROL XL) PO SCH (09:39)
[2017-09-09] MEDS: POTASSIUM CHLORIDE 20 MEQ/PKT PACKET PO SCH (09:39)
[2017-09-09] MEDS: BRIMONIDINE TARTRATE 0.2% 5 mL EYE DROPS OP SCH (09:40)
[2017-09-09] MEDS: LATANOPROST 2.5 ML DROPS (XALATAN) OP SCH (09:40)
[2017-09-09] MEDS: ANTIFUNGAL CLEAR OINTMENT TP SCH (09:59)
[2017-09-09] MEDS: INSULIN ASPART 100 UNITS/ML, 10 ML VIAL (NovoLOG) SUBCUT PRN (11:39)
[2017-09-09] MEDS: FUROSEMIDE 100 MG in D5W 90 ML IV SCH (11:51)
[2017-09-10] MEDS ORDERED: CEFEPIME 1 GM in D5W 50 ML IV SCH (09:00)
== END 2017-09-09 18:50 | DRG 177 ==
LOC: SED 10:39 → STU 13:52 → SIC 14:10 → STU 14:14 → SIC 14:18 → STU 08-31 21:13 → SIC 09-05 08:58
PROVIDERS: ADMIT General Practice; ATTEND General Practice
DX: J69.0 Pneumonitis due to inhalation of food and vomit (principal); G93.41 Metabolic encephalopathy; J96.01 Acute respiratory failure with hypoxia; I62.03 Nontraumatic chronic subdural hemorrhage; E46 Unspecified protein-calorie malnutrition; D69.6 Thrombocytopenia, unspecified; E11.51 Type 2 diabetes mellitus with diabetic peripheral angiopathy without gangrene; I48.0 Paroxysmal atrial fibrillation; I11.0 Hypertensive heart disease with heart failure; I50.9 Heart failure, unspecified; J84.10 Pulmonary fibrosis, unspecified; J44.9 Chronic obstructive pulmonary disease, unspecified; I25.10 Atherosclerotic heart disease of native coronary artery without angina pectoris; N40.0 Benign prostatic hyperplasia without lower urinary tract symptoms; K59.00 Constipation, unspecified; E78.5 Hyperlipidemia, unspecified; Z60.2 Problems related to living alone; Z79.84 Long term (current) use of oral hypoglycemic drugs; Z88.0 Allergy status to penicillin; Z79.899 Other long term (current) drug therapy; Z85.118 Personal history of other malignant neoplasm of bronchus and lung; Z83.3 Family history of diabetes mellitus; I25.2 Old myocardial infarction; Z98.61 Coronary angioplasty status; Z85.818 Personal history of malignant neoplasm of other sites of lip, oral cavity, and pharynx; Z92.21 Personal history of antineoplastic chemotherapy; Z92.3 Personal history of irradiation; Z87.891 Personal history of nicotine dependence; Z79.01 Long term (current) use of anticoagulants; Z68.20 Body mass index [BMI] 20.0-20.9, adult; Z91.81 History of falling
CPT/HCPCS: 36415; 36600; 70450-TC; 71010; 71250-TC; 71275; 80048; 80053; 81000-TC; 82803-TC; 82962; 83605; 83735-TC; 83880; 84100-TC; 84484; 85007; 85025; 85027; 85610-TC; 85730-TC; 87040-TC; 87081; 87086; 93005; 93306; 93970; 94640; 94760; 95816; 96374; 96375; 97110-GP; 97116-GP; 97530-GP; 99285; J0456; J0692; J0696; J1030; J1815; J1940; J1956; J2930; J3490; J7030; J7040; J7050; J7060; Q0144; Q9967